=== PATIENT | female | born 1945 | race African-American/Black ===

== ENCOUNTER → 2018-07-27 | Outpatient (REF) | payer MEDICARE ==
[~2018-07-27] MED LIST: ADLT ASA LOW81 MG PO; DITROPAN5 MG/TA1 PO; FERRO SEQUEL PO; LASIX20 MG PO; MEVACOR10 MG PO; MICRO-K10 ME1 PO; MINERALS PO; NAPROSYN500 MG OR; NAPROSYN500 MG PO; NO CURRENT MEDS; OMEGA 3 KRILL PO; PROTONIX40 M1 PO; SUPER B COM2 PO; TENORMIN25 MG PO; ULTRAM50 MG PO; VITAMIN D32000 UNIT PO; VIVELLE-DOT0.1 MG TD; ZESTRIL10 MG PO
== END | disposition home or self-care (01) ==
LOC: DI 13:11
PROVIDERS: ATTEND Internal Medicine Rheumatology
DX: M25.531 Pain in right wrist (principal)

== ENCOUNTER 2020-10-13 13:41 | Emergency (ER) | payer MEDICARE ==
[~2020-10-13] VITALS: Ht 162.6 cm; Wt 125.0 kg
[2020-10-13] MEDS ORDERED: HYDROCODONE BIT10 MG PO (13:59)
[2020-10-13] MEDS ORDERED: METOPROL TAR25 MG PO (13:59)
[2020-10-13] MEDS ORDERED: LORTAB 1010 MG PO (14:39)
[2020-10-13] MEDS ORDERED: NAPROXEN500 MG PO (14:39)
[2020-10-13 14:47] VITALS: BP 167/77
== END 2020-10-13 14:47 | disposition home or self-care (01) ==
LOC: ED 13:41
DX: M19.072 Primary osteoarthritis, left ankle and foot (principal); M19.071 Primary osteoarthritis, right ankle and foot; I10 Essential (primary) hypertension

== ENCOUNTER 2024-05-20 13:49 | Emergency (ER) | payer MEDICARE ==
[2024-05-20] VITALS (11 sets, daily range): BP systolic 67–147; BP diastolic 44–92
[~2024-05-20] VITALS: Ht 162.6 cm; Wt 127.0 kg
[~2024-05-20 13:49] MED LIST changes: +HYDROCODONE BIT10 MG PO; +LORTAB 1010 MG PO; +METOPROL TAR25 MG PO; +NAPROXEN500 MG PO
[2024-05-20] MEDS ORDERED: KETOROLAC TROMETHAMINE 30 MG/ML SDV IM ONE (14:05)
[2024-05-20] MEDS ORDERED: METHOCARBAMOL 500 MG/TAB PO ONE (14:05)
[2024-05-20] MEDS ORDERED: METHOCARBAMOL500 MG PO (15:48)
[2024-05-20] MEDS ORDERED: NAPROXEN500 MG PO (15:48)
== END 2024-05-20 16:32 | disposition home or self-care (01) ==
LOC: ED 13:49
DX: M54.2 Cervicalgia (principal); R51.9 Headache, unspecified; I10 Essential (primary) hypertension